=== PATIENT | female | born 1985 | race Hispanic/Latino ===

== ENCOUNTER 2017-03-20 21:09 | Emergency (ER) | payer SELFPAY ==
[2017-03-20 22:11] LABS: #Basophils 0.1 thou/uL (0.0-0.2); #Eosinphils 0.3 thou/uL (0.0-0.7); #Lymphocytes 2.7 thou/uL (1.20-3.40); #Monocytes 0.6 thou/uL (0.11-0.59); #Neutrophils 3.6 thou/uL (1.40-6.50); %Basophils 0.8 % (0.0-1.0); %Eosinophils 3.7 % (0.0-10.0); %Lymphocytes 37.5 % (21.0-51.0); %Monocytes 8.7 % (0.0-10.0); Hematocrit 38.7 % (36.0-47.0); Mean Platelet Volume 8.7 fL (7.4-10.4); Red Blood Cell (RBC) Count 4.06 mill/uL (4.20-5.40); White Blood Cell (WBC) Count 7.3 thou/uL (4.8-10.8)
[2017-03-20] MEDS ORDERED: Ketorolac Tromethamine 30 MG/ML VIAL ONE (22:20)
[2017-03-20 22:28] LABS: Anion Gap 12 mmol/L (10-20); BUN (Urea Nitrogen) 16 mg/dL (7.0-18.7); Calc. Creatinine Clearance 0 mL/min (70-130); Calcium 8.9 mg/dL (7.8-10.44); Carbon Dioxide 25 mmol/L (22-29); Chloride 105 mmol/L (98-107); Estimated GFR-MDRD Greater than 90
--- NOTE | 2017-03-20 22:56 | CT ---
CT HEAD WITHOUT IV CONTRAST: 03/20/17 HISTORY: Headache. COMPARISON: None available. FINDINGS: There is no evidence of hemorrhage, acute infarction, mass effect, or midline shift. Ventricular sys tem is normal in size, shape and position. The visualized paranasal sinuses and mastoid air cells ar e clear. The calvarial structures are intact. IMPRESSION: No acute intracranial abnormality is demonstrated. POS: [facility]
== END 2017-03-20 23:10 | disposition home or self-care (01) ==
LOC: ERS 21:09
DX: G43.009 Migraine without aura, not intractable, without status migrainosus (principal)
CPT/HCPCS: 70450; 80048; 85025; 96361; 96374; J1885

== ENCOUNTER 2017-07-18 18:54 | Emergency (ER) | payer SELFPAY | END 2017-07-19 00:30 | disposition home or self-care (01) | LOC: ERS 18:54 | DX: T78.40XA Allergy, unspecified, initial encounter (principal) | CPT/HCPCS: 99283 ==

== ENCOUNTER 2018-01-08 21:23 | Emergency (ER) | payer SELFPAY ==
[2018-01-08 21:48] LABS: #Lymphocytes 0.7 thou/uL (1.20-3.40); #Monocytes 0.7 thou/uL (0.11-0.59); #Neutrophils 7.2 thou/uL (1.40-6.50); %Basophils 0.1 % (0.0-1.0); %Eosinophils 0.1 % (0.0-10.0); %Lymphocytes 8.1 % (21.0-51.0); %Monocytes 7.6 % (0.0-10.0); %Neutrophils 84.1 % (42.0-75.0); Hemoglobin 13.6 g/dL (12.0-16.0); Mean Corpuscular HGB CONC 34.9 g/dL (32.0-36.0); Mean Corpuscular Volume 94.7 fL (78.0-98.0); Mean Platelet Volume 8.3 fL (7.4-10.4); Platelet Count 188 thou/uL (130-400); RBC Distribution Width 11.9 % (11.5-14.5); Red Blood Cell (RBC) Count 4.12 mill/uL (4.20-5.40); White Blood Cell (WBC) Count 8.5 thou/uL (4.8-10.8)
[2018-01-08 22:08] LABS: ALT (SGPT) 10 U/L (8-55); AST (SGOT) 14 U/L (5-34); Albumin 4.2 g/dL (3.5-5.0); Alkaline Phosphatase 86 U/L (40-150); Anion Gap 15 mmol/L (10-20); BUN (Urea Nitrogen) 13 mg/dL (7.0-18.7); Bilirubin, Total 0.7 mg/dL (0.2-1.2); Calc. Creatinine Clearance 0 mL/min (70-130); Calcium 8.9 mg/dL (7.8-10.44); Carbon Dioxide 22 mmol/L (22-29); Chloride 105 mmol/L (98-107); Estimated GFR-MDRD 80; Globulin 3.2 g/dL (2.4-3.5); Glucose 115 mg/dL (70-105); Lipase 34 U/L (8-78); Potassium 3.7 mmol/L (3.5-5.1); Protein, Total 7.4 g/dL (6.0-8.3); Sodium 138 mmol/L (136-145)
[2018-01-08 22:23] LABS: Bilirubin Negative (Negative); Blood, Urine Small (Negative); Clarity CLOUDY (Clear); Glucose, Urine (Dipstick) Negative (Negative); Leukocyte Moderate (Negative); Nitrite Negative (Negative); Pregnancy Test - Urine (BHCG) Negative (Negative); Pregu Control Background? CLEAR/WHITE (CLR/WHITE); Pregu Control Bar Appear? YES (CONTROL BAR); Protein, Urine (Dipstick) Negative (Neg-Trace); Specific Gravity 1.029 (1.002-1.036); Specific Gravity, Urine 1.029 (1.002-1.036); Urobilinogen 0.2 mg/dL (0.2-1.0)
[2018-01-08 22:24] LABS: Bacteria/HPF 1+ HPF (None Seen); Hyaline Casts/LPF 0-3 HYALINE CAST LPF (0-3 Hyaline); Pathc Cast-AUWi Flag 0.58 (0-2.49)
[2018-01-08 22:25] LABS: Yeast-AUWi Flag 45.5 (0-25.0)
[2018-01-08 22:33] LABS: Transitional Epithelial 0-3 HPF (0-3); Yeast-All Forms None Seen HPF (None Seen)
[2018-01-09] MEDS ORDERED: Ondansetron HCl/PF 4 MG/2 ML Vial ONE (01:43)
[2018-01-09] MEDS ORDERED: Mag-Al 1200 mg/1200 mg/30 ML UDCUP ONE (01:43)
[2018-01-09] MEDS ORDERED: Lidocaine Viscous Sol 2% 15 ml UD Cup ONE (01:43)
[2018-01-09] MEDS ORDERED: Dicyclomine 20 MG TAB ONE (01:43)
[2018-01-09] MEDS ORDERED: Ondansetron ODT 4 MG TAB ONE (01:44)
[2018-01-09] MEDS ORDERED: Ketorolac Tromethamine 60 MG/2 ML VIAL ONE (03:08)
== END 2018-01-09 03:34 | disposition home or self-care (01) ==
LOC: EEVIPCON 21:23 → ERS 21:23
DX: K52.9 Noninfective gastroenteritis and colitis, unspecified (principal)
CPT/HCPCS: 36415; 80053; 81003; 81015; 81025; 83690; 85025; 96372; J1885; J2405; Q0162